=== PATIENT | female | born 1935 | race Caucasian/White ===

== ENCOUNTER 2017-07-28 16:05 | Inpatient (IN) | payer MEDICARE, BC ==
[~2017-07-28] VITALS: Ht 165.1 cm; Wt 51.9 kg
[~2017-07-28 16:05] MED LIST: BRIM5DRO EACHEYE; FURO40SO5 PO; LATA2.5D7 EACHEYE; LEVO125T PO; POTA8TAB8 PO; PROP20TA7 PO; SPIR100T3 PO
--- NOTE | 2017-07-28 16:25 | NUR ---
PT BIB [facility] S/P FALL DOWN STAIRS TODAY. NO KO BUT PT HIT BACK OF HER HEAD AND IS C/O POSTERIOR HEADACHE. ALSO C/O MID-BACK AND R CLAVICLE PAIN. NOTED WITH MULTIPLE ABRASIONS ALL OVER BODY, R HAND AVULSION, AND A HEMATOMA OVER THE R EYEBROW. A/OX4. ABLE TO FOLLOW COMMANDS. NO NEURO DEFICITS. NO N/V/D. RESP EVEN UNLABORED. IN ER BED 08.
--- NOTE | 2017-07-28 17:44 | NUR ---
MD AT BEDSIDE. REPORT MINIMAL PAIN RELIEF WITH MEDICATION ADMINISTERED.
[2017-07-28 18:03] LABS: BASOPHILS # (AUTO) 0.1 /CMM (0.0-0.2); BASOPHILS % (AUTO) 0.6 % (0.0-2.0); EOSINOPHILS % (AUTO) 0.1 % (0.0-6.0); HEMATOCRIT 35 % (33-45); LYMPHOCYTES # (AUTO) 0.7 /CMM (0.8-4.8); LYMPHOCYTES % (AUTO) 6.5 % (20.0-44.0); MEAN CORPUSCULAR HEMOGLOBIN 35 PG (26.0-33.0); MEAN CORPUSCULAR HGB CONC 34 g/dl (31.0-36.0); MEAN CORPUSCULAR VOLUME 103 fL (82-100); MONOCYTES # (AUTO) 0.6 /CMM (0.1-1.30); MONOCYTES % (AUTO) 5.7 % (2.0-12.0); NEUTROPHILS % (AUTO) 87.1 % (43.0-81.0); PLATELET COUNT (AUTO) 135 /CMM (150-450); RDW COEFFICIENT OF VARIATION 13.4 (11.5-15.0); RED BLOOD CELL COUNT(AUTO) 3.38 MIL/uL (4.0-5.2); WHITE BLOOD COUNT (AUTO) 10.4 K/uL (4.3-11.0)
--- NOTE | 2017-07-28 18:04 | NUR ---
CALLED [employer], WEB COMMUNICATIONS SPECIALIST WAS PAGED.
[2017-07-28 18:13] LABS: CALCIUM, SERUM 9.3 mg/dL (8.5-10.1); CARBON DIOXIDE 18 mmol/L (21-32); CHLORIDE 99 mmol/L (98-107); CREATININE 0.8 mg/dL (0.6-1.3); GLUCOSE 139 mg/dL (74-106); POTASSIUM 3.6 mmol/L (3.5-5.1); SODIUM SERUM 134 mmol/L (136-145); UREA NITROGEN, BLOOD 15 mg/dL (7-18)
[2017-07-28 18:16] LABS: INR 1.05 (0.87-1.13); PROTHROMBIN TIME 10.9 SECS (9.5-12.7)
[2017-07-28 18:26] LABS: ALANINE AMINOTRANSFERASE 29 U/L (12-78); ALBUMIN 3.2 g/dL (3.4-5.0); ALKALINE PHOSPHATASE 89 U/L (46-116); ASPARTATE AMINOTRANSFERASE 32 U/L (15-37); BILIRUBIN,DIRECT 0.2 mg/dL (0.0-0.2); BILIRUBIN,TOTAL 0.6 mg/dL (0.2-1.0); TOTAL PROTEIN, SERUM 7.3 g/dL (6.4-8.2)
--- NOTE | 2017-07-28 18:30 | NUR ---
RESTING WITH NO S/S OF DISRTRESS. RESP EVEN AND UNLABORED. EASILY AROUSABLE.
--- NOTE | 2017-07-28 19:01 | NUR ---
STILL AWAITING ROOM ASSIGNMENT. PT AWARE. DENIES ANY NEW OR WORSENING SX'S. NON DIAPHORETIC. RESP EVEN AND UNLABORED.
[2017-07-28] MEDS ORDERED: SPIR100T3 PO (19:07)
--- NOTE | 2017-07-28 19:38 | NUR ---
REPORT GIVEN TO TERESA FERRARO FOR FRANCOIS
--- NOTE | 2017-07-28 19:44 | NUR ---
PT TRANSPORTED TP MS BED BY EMT WITHOUT INCIDENT
[2017-07-28 20:00] VITALS: BP 153/67
--- NOTE | 2017-07-28 20:00 | NUR ---
RN NOTES RECEIVED PATIENT FROM ER VIA FELIPA, ALERT AND ORIENTED X3, ANXIOUS, NO SOB, NO RESPIRATORY DISTRESS, LUNG SOUNDS ARE CLEAR, ABDOMEN SOFT AND NONTENDER, ACTIVE BOWEL SOUNDS, DX OF RIGHT HUMERUS FX. S/P FALL AT HOME, COMPLAINING OF PAIN OF 8/10 TO RIGHT SHOULDER, AND RIGHT ARM. PAIN IS MORE EXCRUCIATING WHEN RIGHT ARM IS MOVED. RIGHT ARM IN SLING AND IMMOBILIZER. PER PATIENT, HAS ALCOHOL DRINKS AT 2PM, HAVING ALCOHOLIC DRINKS DAILY WITH MEALS, FOR LUNCH AND DINNER. SKIN ASSESSMENT PERFORMED AND PHOTOGRAPHED. RIGHT FOREHEAD HEMATOMA AND MULTIPLE BRUISING OF RIGHT AND LEFT ARMS. ORDERED WOUND CARE CONSULT FOR RIGHT HAND WITH DEEP TISSUE INJURY AND WITH SKIN PEELED OFF. GIVEN SPONGE BATH, MADE COMFORTABLE, WILL GIVE PAIN MEDICATION. NEEDS ATTENDED, ORIENTED TO USE OF CALL LIGHT. AT THE BEDSIDE.
--- NOTE | 2017-07-29 06:32 | NUR ---
RN NOTES PATIENT IS AWAKE AND ALERT, NO SOB, NO DISTRESS, GIVEN MORPHINE X2 FOR RIGHT ARM PAIN OF 8/10. SLEPT FOR 4 HOURS INTERMITTENTLY, NEEDS ATTENDED, CALL LIGHT WITHIN REACH.
[2017-07-29 06:59] LABS: BASOPHILS % (AUTO) 0.3 % (0.0-2.0); EOSINOPHILS # (AUTO) 0.1 /CMM (0.0-0.7); EOSINOPHILS % (AUTO) 1.1 % (0.0-6.0); HEMATOCRIT 28 % (33-45); HEMOGLOBIN 9.5 g/dL (11.5-14.8); LYMPHOCYTES # (AUTO) 1.5 /CMM (0.8-4.8); LYMPHOCYTES % (AUTO) 23.3 % (20.0-44.0); MEAN CORPUSCULAR HEMOGLOBIN 35 PG (26.0-33.0); MEAN CORPUSCULAR HGB CONC 34 g/dl (31.0-36.0); MEAN CORPUSCULAR VOLUME 103 fL (82-100); MONOCYTES # (AUTO) 0.7 /CMM (0.1-1.30); MONOCYTES % (AUTO) 11.1 % (2.0-12.0); NEUTROPHILS # (AUTO) 4.2 /CMM (1.8-8.9); NEUTROPHILS % (AUTO) 64.2 % (43.0-81.0); PLATELET COUNT (AUTO) 124 /CMM (150-450); RDW COEFFICIENT OF VARIATION 14.3 (11.5-15.0); RED BLOOD CELL COUNT(AUTO) 2.73 MIL/uL (4.0-5.2); WHITE BLOOD COUNT (AUTO) 6.6 K/uL (4.3-11.0)
[2017-07-29 07:16] LABS: CALCIUM, SERUM 8.3 mg/dL (8.5-10.1); CARBON DIOXIDE 21 mmol/L (21-32); CHLORIDE 105 mmol/L (98-107); CREATININE 0.7 mg/dL (0.6-1.3); GLUCOSE 101 mg/dL (74-106); MAGNESIUM 1.6 mg/dL (1.8-2.4); PHOSPHORUS 3.6 mg/dL (2.5-4.9); POTASSIUM 4.7 mmol/L (3.5-5.1); SODIUM SERUM 135 mmol/L (136-145); UREA NITROGEN, BLOOD 13 mg/dL (7-18)
[2017-07-29 07:29] LABS: CHOLESTEROL 156 mg/dL (<200); HDL CHOLESTEROL 84 mg/dL (40-60); LDL 72 mg/dL (0-99); TRIGLYCERIDES 36 mg/dL (30-150)
--- NOTE | 2017-07-29 07:40 | NUR ---
RN Initial Notes: Patient alert oriented x3. Nonlabored breathing on room air noted. Patient denies pain at the moment. IV site on left forearm patent and intact. Bed in lowest locked position. Call light within reach. Will continue to monitor.
[2017-07-29 08:59] VITALS: BP 116/54
[2017-07-29 16:00] VITALS: BP 133/80
--- NOTE | 2017-07-29 18:48 | NUR ---
RN Closing Notes: Patient alert oriented x3. Nonlabored breathing on room air noted. Patient denies pain at the moment. Patient offered Ice packs IV site on left forearm patent and intact. Bed in lowest locked position. Call light within reach. During shift, patient turned and repositioned every 2 hours. Patient kept clean and dry. Will endorse to next shift.
[2017-07-29 20:00] VITALS: BP 93/52
--- NOTE | 2017-07-29 20:11 | NUR ---
RN NOTES ENDORSED PATIENT TO RENNY PRITCHETT FOR FRANCOIS. PATIENT IN STABLE CONDITION. NO SIGNS OF SYMPTOMS OF DISTRESS OR DISCOMFORT.
--- NOTE | 2017-07-29 20:15 | NUR ---
PESTICIDE USE MEDICAL COORDINATOR INITIAL NOTES CHECKED PT AFTER GOT REPORT FROM ANOTHER NURSE FOR CONTINUITY OF CARE. SHE'S RESTING RIGHT NOW BUT WATCHING TV . DENIES ANY PAIN OR ANY DISCOMFORT. STILL WITH IVF OF NS AT 75ML/HR ON HER LEFT FOREARM . STILL BRUISE PRESENT AND HEMATOMA RIGHT FOREHEAD. RIGHT SHOULDER WITH IMMOBILIZER /SLING FOR COMFORT. KEPT HER WARM AND COMFORTABLE AT ALL TIMES. WILL CONTINUE TO MONITOR. PLACE CALL LIGHT AT REACH.
[2017-07-29 20:33] VITALS: BP 93/50
--- NOTE | 2017-07-30 | NUR ---
CLINICAL EDITOR/NOTES PT SLEEPING COMFORTABLY IN BED WITHOUT ANY ACUTE DISTRESS NOTED. IVF STILL INFUSING. KEPT HER WARM AND COMFORTABLE AT ALL TIMES. ICE PACK REPLACED ON HER RIGHT FOR COMFORT. WILL CONTINUE TO MONITOR.
--- NOTE | 2017-07-30 07:16 | NUR ---
MS REFRIGERATOR CAR ICER CLOSING NOTES PT AWAKE AND ALERT AT THIS TIME, MORNING CARE DONE WITH THE HELPED OF HAILEY KITCHEN, REPOSITION HER FOR COMFORT. STABLE DARYL THE NIGHT AND SLEPT WELL, RIGHT ARM STILL ON IMMOBILIZER AND ICE PACK APPLIED FOR COMFORT AND HELPED TO RELIEVED THE PAIN. PT JUST REFUSED TO CHANGED HER GOWN, ENDORSE TO AM NURSE.
--- NOTE | 2017-07-30 07:26 | NUR ---
RN Initial Notes: Patient resting in bed. Patient alert oriented x3. Non-labored breathing on room air. Patient denies pain at the moment. IV site patent and intact. Immobilizer and sling on. Patient not putting weight on arm. Bed in lowest locked position. Call light within reach. Will continue to monitor.
[2017-07-30 08:00] VITALS: BP 129/62
[2017-07-30 16:30] VITALS: BP 166/55
--- NOTE | 2017-07-30 19:14 | NUR ---
RN Closing Notes: Patient resting in bed. Patient alert oriented x3. Non-labored breathing on room air. Patient denies pain at the moment. IV site patent and intact. Immobilizer and sling on. Patient not putting weight on arm. Bed in lowest locked position. Call light within reach. Will endorse to next shift
--- NOTE | 2017-07-30 19:30 | NUR ---
RN NOTES RECEIVED PATIENT IN BED AWAKE, AO X 1, ABLE TO MAKE NEEDS KNOWN. NO ACUTE DISTRESS NOTED. NO SIGNS OF PAIN NOTED. IV SITES PATENT, INTACT; FLUSHED. LEFT UPPER ARM AV SHUNT INTACT. GT PATENT, INTACT; IN PLACE VIA AUSCULTATION. GTF ONGOING ORDERED; 10 ML RESIDUAL NOTED. HOB RAISED 35 DEGREES ORDERED. ASPIRATION PRECAUTION MAINTAINED. ON LOW BED WITH BILATERAL UPPER SIDE RAILS UP. CALL LIGHT WITHIN EASY REACH. WILL CONTINUE TO MONITOR.
[2017-07-30 20:00] VITALS: BP 105/54
--- NOTE | 2017-07-31 06:22 | NUR ---
RN NOTES PATIENT ASLEEP, EASILY AROUSABLE. RESPIRATIONS EVEN. NO SIGNS OF PAIN NOTED. NEEDS ATTENDED. SAFETY PRECAUTIONS AND COMFORT MEASURES IN PLACE. WILL GIVE REPORT TO DAY SHIFT FOR CONTINUITY OF CARE.
[2017-07-31 07:19] LABS: BASOPHILS % (AUTO) 0.4 % (0.0-2.0); EOSINOPHILS # (AUTO) 0.1 /CMM (0.0-0.7); EOSINOPHILS % (AUTO) 2.2 % (0.0-6.0); HEMATOCRIT 28 % (33-45); HEMOGLOBIN 9.4 g/dL (11.5-14.8); LYMPHOCYTES % (AUTO) 26.5 % (20.0-44.0); MEAN CORPUSCULAR HEMOGLOBIN 36 PG (26.0-33.0); MEAN CORPUSCULAR HGB CONC 34 g/dl (31.0-36.0); MEAN CORPUSCULAR VOLUME 105 fL (82-100); MONOCYTES # (AUTO) 0.4 /CMM (0.1-1.30); MONOCYTES % (AUTO) 11.1 % (2.0-12.0); NEUTROPHILS # (AUTO) 2.2 /CMM (1.8-8.9); NEUTROPHILS % (AUTO) 59.8 % (43.0-81.0); PLATELET COUNT (AUTO) 80 /CMM (150-450); RDW COEFFICIENT OF VARIATION 14.2 (11.5-15.0); RED BLOOD CELL COUNT(AUTO) 2.64 MIL/uL (4.0-5.2); WHITE BLOOD COUNT (AUTO) 3.7 K/uL (4.3-11.0)
[2017-07-31 07:35] LABS: CALCIUM, SERUM 8.4 mg/dL (8.5-10.1); CARBON DIOXIDE 22 mmol/L (21-32); CHLORIDE 105 mmol/L (98-107); CREATININE 0.7 mg/dL (0.6-1.3); GLUCOSE 91 mg/dL (74-106); POTASSIUM 3.9 mmol/L (3.5-5.1); SODIUM SERUM 139 mmol/L (136-145); UREA NITROGEN, BLOOD 10 mg/dL (7-18)
[2017-07-31 08:00] VITALS: BP 146/70
--- NOTE | 2017-07-31 08:00 | NUR ---
MS RN AM Notes: Patient resting in bed. Patient alert oriented x3. Non-labored breathing on room air. Patient denies pain at the moment. IV site to LFA patent and intact. Immobilizer and sling on. Patient not putting weight on arm. Bed in lowest locked position. Encouraged pt to ambulate along the hallway or atleast get OOB with assist.Pt scared to get OOB.Pain mgt done PRN.NOC RN just administered Weatherly 5/325 mg 1 tab earlier.Will monitor. Call light within reach.
[2017-07-31 09:08] LABS: BAND % (MANUAL) 1 % (0.0-5.0); EOSINOPHILS % (MANUAL) 2 % (0-4); LYMPHOCYTES % (MANUAL) 36 % (16-48); MONOCYTES % (MANUAL) 8 % (0-11.0); NEUTROPHILS % (MANUAL) 53 (42-76)
[2017-07-31 16:00] VITALS: BP 155/73
--- NOTE | 2017-07-31 17:40 | NUR ---
DISCHARGED PT TO [facility] VIA AMBULANCE WITH STABLE V/S ACCOMPANIED BY HER DENYING PAIN OR DISTRESS.REPORT CALLED IN TO RONAN JORDAN OF [facility].REMOVED IV H/L TO LFA WITHOUT BLEEDING NOTED.INSTRUCTED TO F/U WITH DR BLAS IN 1-2 WKS.
== END 2017-07-31 19:15 | DRG 543 ==
LOC: ER 16:06 → MED 19:38
PROVIDERS: ADMIT Internal Medicine; ATTEND Internal Medicine
DX: M80.021A Age-related osteoporosis with current pathological fracture, right humerus, initial encounter for fracture (principal); N17.9 Acute kidney failure, unspecified; E44.0 Moderate protein-calorie malnutrition; D69.6 Thrombocytopenia, unspecified; E87.1 Hypo-osmolality and hyponatremia; E83.42 Hypomagnesemia; Z68.1 Body mass index [BMI] 19.9 or less, adult; M80.041 Age-related osteoporosis with current pathological fracture, right hand; D53.9 Nutritional anemia, unspecified; E03.9 Hypothyroidism, unspecified; E78.5 Hyperlipidemia, unspecified; W10.9XXA Fall (on) (from) unspecified stairs and steps, initial encounter; Y92.009 Unspecified place in unspecified non-institutional (private) residence as the place of occurrence of the external cause; I10 Essential (primary) hypertension; F10.20 Alcohol dependence, uncomplicated; M50.323 Other cervical disc degeneration at C6-C7 level; K74.60 Unspecified cirrhosis of liver; I35.0 Nonrheumatic aortic (valve) stenosis; I34.0 Nonrheumatic mitral (valve) insufficiency; Y93.9 Activity, unspecified; S62.346A Nondisplaced fracture of base of fifth metacarpal bone, right hand, initial encounter for closed fracture
CPT/HCPCS: 36415; 70450-TC; 71010-TC; 72125-TC; 73030-TC; 73110; 73130-TC; 80048-TC; 80061-TC; 80076-TC; 83735-TC; 84100-TC; 85025-TC; 85730-TC; 87081-TC; 90715; 93307-TC; 97116-TC; 97530-TC; 97535-TC; A4606; A6402; J2270; J3475; J7030; Q0162; Z7610

== ENCOUNTER 2018-02-03 13:46 | Inpatient (IN) | payer MEDICARE, BC ==
[~2018-02-03] VITALS: Ht 162.6 cm; Wt 51.7 kg
[~2018-02-03 13:46] MED LIST changes: -BRIM5DRO EACHEYE; -FURO40SO5 PO; -LATA2.5D7 EACHEYE; -POTA8TAB8 PO; -PROP20TA7 PO; -SPIR100T3 PO; +SPIR100T5 PO
--- NOTE | 2018-02-03 13:46 | NUR ---
[id number] FROM HOME FOR GENEREALIZED WEAKNESS X 0930AM. NAD NOTED. HX LIVER CIRRHOSIS. PT AAO X4, VSS. PENDING MD JARRELL.
--- NOTE | 2018-02-03 15:00 | NUR ---
AT 1450 NOTIFIED ER DOCTOR SAL, NO RADIOLOGIST ON SITE. RADIOLOGIST HAS LEFT TO [facility] TO PERFORM OTHER PROCEDURES
[2018-02-03 15:21] LABS: ALANINE AMINOTRANSFERASE 22 U/L (12-78); ALBUMIN 2.5 g/dL (3.4-5.0); ALKALINE PHOSPHATASE 99 U/L (46-116); ASPARTATE AMINOTRANSFERASE 48 U/L (15-37); BILIRUBIN,DIRECT 0.5 mg/dL (0.0-0.2); BILIRUBIN,TOTAL 1.1 mg/dL (0.2-1.0); CALCIUM, SERUM 8.8 mg/dL (8.5-10.1); CARBON DIOXIDE 21 mmol/L (21-32); CHLORIDE 96 mmol/L (98-107); CREATININE 0.7 mg/dL (0.6-1.3); GLUCOSE 109 mg/dL (74-106); LIPASE 82 U/L (73-393); POTASSIUM 4.1 mmol/L (3.5-5.1); SODIUM SERUM 129 mmol/L (136-145); TOTAL PROTEIN, SERUM 7.3 g/dL (6.4-8.2); UREA NITROGEN, BLOOD 20 mg/dL (7-18)
[2018-02-03 15:39] LABS: BASOPHILS % (AUTO) 0.7 % (0.0-2.0); EOSINOPHILS % (AUTO) 0.7 % (0.0-6.0); HEMATOCRIT 31 % (33-45); HEMOGLOBIN 10.6 g/dL (11.5-14.8); LYMPHOCYTES % (AUTO) 16.4 % (20.0-44.0); MEAN CORPUSCULAR HGB CONC 34 g/dl (31.0-36.0); MEAN CORPUSCULAR VOLUME 106 fL (82-100); MONOCYTES # (AUTO) 0.4 /CMM (0.1-1.30); MONOCYTES % (AUTO) 7.4 % (2.0-12.0); NEUTROPHILS # (AUTO) 4.5 /CMM (1.8-8.9); NEUTROPHILS % (AUTO) 74.8 % (43.0-81.0); PLATELET COUNT (AUTO) 194 /CMM (150-450); RDW COEFFICIENT OF VARIATION 18.8 (11.5-15.0); RED BLOOD CELL COUNT(AUTO) 2.93 MIL/uL (4.0-5.2); WHITE BLOOD COUNT (AUTO) 5.9 K/uL (4.3-11.0)
--- NOTE | 2018-02-03 17:10 | NUR ---
DR BROOKS- [phone] FOR HER PRIMARY MD
--- NOTE | 2018-02-03 17:21 | NUR ---
CALLED NURSING SUPP FOR BED
[2018-02-03 17:38] LABS: LYMPHOCYTES % (MANUAL) 10 % (16-48); MONOCYTES % (MANUAL) 1 % (0-11.0); NEUTROPHILS % (MANUAL) 89 (42-76)
--- NOTE | 2018-02-03 17:38 | NUR ---
ADMIT TO BED 321-1
--- NOTE | 2018-02-03 17:47 | NUR ---
REPORT GIVEN TO MAYA FERRARO FOR FRANCOIS
[2018-02-03] MEDS ORDERED: FURO40TA5 PO (17:52)
[2018-02-03] MEDS ORDERED: PROP20TA7 PO (17:52)
--- NOTE | 2018-02-03 18:20 | NUR ---
PT TRANSFERRED TO [facility] IN STABLE CONDITION.
[2018-02-03 18:30] VITALS: BP 135/65
--- NOTE | 2018-02-03 18:44 | NUR ---
ms aerospace control and warning systems notes Admitted a 82 years old female who came in due to weakness and for DYANA guided paracentesis. Patient is alert and oriented x 4, verbally responsive and able to make needs known. at bedside. IV intact and patent HL only. Skin assessment will endorse to night clerk auditor. Antonieta ACADEMIC AFFAIRS MANAGER made aware about the admission and ordered diet 2gNa. Vital signs checked and recorded. Call light with in patient reach, will continue to monitor.
--- NOTE | 2018-02-03 19:17 | NUR ---
ms rn closing notes All needs provided, attended, and anticipated. Patient in stable condition. Call light with in patient reach, endorsed to next shift RN to continue care.
[2018-02-03 20:00] VITALS: BP 129/63
[2018-02-03] MEDS ORDERED: ZOLPIDEM TARTRATE 5 MG TABLET PO PRN (20:00)
[2018-02-03] MEDS ORDERED: MAGNESIUM HYDROXIDE 30 ML UDC PO PRN (20:00)
[2018-02-03] MEDS ORDERED: HYDROCODONE/APAP 5/325MG 1 EACH TABLET PO PRN (20:00)
[2018-02-03] MEDS ORDERED: INSULIN REGULAR, HUMAN 100 UNIT/ML 3 ML VIAL SQ PRN (20:00)
[2018-02-03] MEDS ORDERED: Z GUARD REMEDY 2 OZ OINT TP PRN (20:00)
[2018-02-03] MEDS ORDERED: ACETAMINOPHEN 325 MG TABLET PO PRN (20:00)
[2018-02-03] MEDS ORDERED: *INSULIN REGULAR(HUMULIN R)HUM 100 UNIT/ML VIAL SQ PRN (20:00)
[2018-02-03] MEDS ORDERED: DEXTROSE 50%-WATER 50 ML DISP.SYRIN IV PRN (20:00)
[2018-02-03] MEDS ORDERED: ONDANSETRON HCL/PF 4 MG/2 ML VIAL IVP PRN (20:00)
--- NOTE | 2018-02-03 20:05 | NUR ---
MS/RN PATIENT AWAKE, ALERT, ORIENTED, COMFORTABLE, NO C/O PAIN, NO DISTRESS NOTED. PLAN OF CARE DISCUSSED, PATIENT NOT AGREEABLE FOR THE PARACENTESIS ORDERED FOR TOMORROW AND REFUSES TO SIGN THE CONSENT. PER PATIENT SHE WILL NEED TO TALK TO THE DOCTOR FIRST IN THE MORNING.
[2018-02-03] MEDS: PROPRANOLOL HCL 10 MG TABLET PO SCH (21:00)
[2018-02-04 00:25] LABS: APPEARANCE,URINE CLEAR (CLEAR); BILIRUBIN,URINE NEGATIVE (NEGATIVE); BLOOD, URINE NEGATIVE Ery/uL (NEGATIVE); KETONES,URINE 1+ (NEGATIVE); LEUKOCYTE ESTERASE ,URINE NEGATIVE (NEGATIVE); NITRITE, URINE NEGATIVE (NEGATIVE); PH,URINE 5.5 (5.0-8.0); PROTEIN,URINE NEGATIVE (NEGATIVE); UGLUCOSE NEGATIVE (NEGATIVE); UROBILINOGEN,URINE 0.2 EU/dL (0.2)
[2018-02-04 00:26] LABS: COLOR,URINE DARK YELLOW (YELLOW)
[2018-02-04 00:28] LABS: BACTERIA,URINE Few /HPF (None Seen); RBC,URINE 0-2 /HPF (0-2); SQUAMOUS EPITHELIAL CELL,UR Many /HPF (None Seen); WBC,URINE 0-2 /HPF (0-3)
--- NOTE | 2018-02-04 01:01 | NUR ---
MS/RN PATIENT IS SLEEPING AT THIS TIME, AROUSABLE, APPEAR COMFORTABLE, NO SIGNS OF DISTRESS NOTED, CALL LIGHT IN REACH. WILL CONTINUE TO MONITOR.
[2018-02-04] MEDS: BLOOD SUGAR DIAGNOSTIC 1 EACH STRIP IN SCH ×4 (01:04→18:20)
[2018-02-04 05:21] LABS: OCCULT BLOOD STOOL POSITIVE (NEGATIVE)
--- NOTE | 2018-02-04 07:01 | NUR ---
MS/RN PATIENT IS AWAKE, ALERT, ORIENTED, COMFORTABLE, NO CHANGE IN CONDITION, NPO POST MIDNIGHT FOR POSSIBLE PARACENTESIS TODAY IF THE PATIENT WILL CONSENT. ALL NEEDS ATTENDED AT THIS TIME. WILL CONTINUE TO MONITOR.
[2018-02-04 07:18] LABS: BASOPHILS % (AUTO) 0.5 % (0.0-2.0); EOSINOPHILS % (AUTO) 0.5 % (0.0-6.0); HEMATOCRIT 27 % (33-45); HEMOGLOBIN 9.6 g/dL (11.5-14.8); LYMPHOCYTES # (AUTO) 0.8 /CMM (0.8-4.8); LYMPHOCYTES % (AUTO) 17.2 % (20.0-44.0); MEAN CORPUSCULAR HGB CONC 35 g/dl (31.0-36.0); MEAN CORPUSCULAR VOLUME 106 fL (82-100); MONOCYTES # (AUTO) 0.5 /CMM (0.1-1.30); MONOCYTES % (AUTO) 10.8 % (2.0-12.0); NEUTROPHILS # (AUTO) 3.3 /CMM (1.8-8.9); PLATELET COUNT (AUTO) 145 /CMM (150-450); RDW COEFFICIENT OF VARIATION 20.3 (11.5-15.0); RED BLOOD CELL COUNT(AUTO) 2.57 MIL/uL (4.0-5.2); WHITE BLOOD COUNT (AUTO) 4.6 K/uL (4.3-11.0)
[2018-02-04 07:35] LABS: CHOLESTEROL 162 mg/dL (<200); HDL CHOLESTEROL 94 mg/dL (40-60); LDL 69 mg/dL (0-99); TRIGLYCERIDES 46 mg/dL (30-150)
[2018-02-04 07:40] LABS: CALCIUM, SERUM 8.1 mg/dL (8.5-10.1); CARBON DIOXIDE 23 mmol/L (21-32); CHLORIDE 95 mmol/L (98-107); CREATININE 0.7 mg/dL (0.6-1.3); GLUCOSE 101 mg/dL (74-106); MAGNESIUM 1.6 mg/dL (1.8-2.4); PHOSPHORUS 2.8 mg/dL (2.5-4.9); POTASSIUM 4.5 mmol/L (3.5-5.1); SODIUM SERUM 130 mmol/L (136-145); UREA NITROGEN, BLOOD 19 mg/dL (7-18)
[2018-02-04 08:00] VITALS: BP_SYST 122; BP_SYST 143; BP_DIAS 63; BP_DIAS 71
--- NOTE | 2018-02-04 08:00 | NUR ---
ms rn received on bed awake,alert,oriented x4,not in any form of distress, respirations even and unlabored,no sob noted, lungs are diminish,abdomen is distended, for paracenthesis today if agreed, no distress noted, denies pain at this time, at bedside.will monitor patient.
[2018-02-04] MEDS: PROPRANOLOL HCL 10 MG TABLET PO SCH ×2 (09:00→17:00)
[2018-02-04 10:07] LABS: BAND % (MANUAL) 2 % (0.0-5.0); LYMPHOCYTES % (MANUAL) 17 % (16-48); MONOCYTES % (MANUAL) 6 % (0-11.0); NEUTROPHILS % (MANUAL) 75 (42-76)
[2018-02-04] MEDS ORDERED: LIDOCAINE HCL/PF 1% 30 ML SDV ONE (10:10)
[2018-02-04] MEDS ORDERED: LEVOFLOXACIN 500 MG /D5W 100ML 500 MG in PREMIX 1 EA IV SCH (11:00)
[2018-02-04] MEDS ORDERED: LEVOFLOXACIN 500 MG /D5W 100ML 500 MG in PREMIX 1 EA IV ONE (12:00)
--- NOTE | 2018-02-04 12:00 | NUR ---
MS RN PARACENTHESIS DONE W/ 1000ML OUT,TOLERATED WELL.
[2018-02-04] MEDS: Magnesium 1GM/D5W 100ML PREMIX 100 ML IV SCH ×2 (14:10→18:21)
[2018-02-04] MEDS: SPIRONOLACTONE 25 MG TABLET PO SCH (14:17)
[2018-02-04] MEDS: FUROSEMIDE 40 MG TABLET PO SCH (14:17)
[2018-02-04] MEDS: LEVOTHYROXINE SODIUM 125 MCG TABLET PO SCH (14:18)
[2018-02-04] MEDS: THIAMINE HCL 100 MG TABLET PO SCH (14:22)
[2018-02-04 16:00] VITALS: BP 134/60
--- NOTE | 2018-02-04 18:00 | NUR ---
ms chowdhury bs - 159 - refused coverage, has a tendency to go low.
[2018-02-04] MEDS: PANTOPRAZOLE 40 MG VIAL IV SCH (18:20)
--- NOTE | 2018-02-04 19:30 | NUR ---
MS/RN RECEIVE PATIENT AWAKE, ALERT, ORIENTED, COMFORTABLE, NO C/O PAIN, NO DISTRESS NOTED, PLAN OF CARE RE: EGD IN THE MORNING, NPO POST MIDNIGHT, DISCUSSED VERBALIZED UNDERSTANDING AND IS IN AGREEMENT TO THE PLAN. WILL MONITOR.
[2018-02-04 20:00] VITALS: BP 126/59
[2018-02-05] MEDS: BLOOD SUGAR DIAGNOSTIC 1 EACH STRIP IN SCH ×5 (00:09→23:38)
--- NOTE | 2018-02-05 00:10 | NUR ---
MS/RN PATIENT STILL AWAKE, NPO STATUS STARTED, PATIENT MADE AWARE AND IS IN AGREEMENT OF THE PLAN OF CARE.
--- NOTE | 2018-02-05 04:11 | NUR ---
MS/RN PATIENT IS SLEEPING AT THIS TIME, EASILY AROUSABLE, APPEAR COMFORTABLE, NO DISTRESS NOTED, CALL LIGHT IN REACH. WILL CONTINUE TO MONITOR.
--- NOTE | 2018-02-05 06:44 | NUR ---
MS/RN PATIENT IS AWAKE, ALERT ORIENTED, COMFORTABLE, ALL NEEDS ATTENDED AT THIS TIME, FERN PICKER TIME FOR EGD IS 8:00 A.M. PER INSPECTION CLERK, PATIENT INFORMED.
--- NOTE | 2018-02-05 08:00 | NUR ---
ms rn received on bed, awake,alert,oriented x4,not in any form of distress,respirations even and unlabored,no sob noted, lungs are diminished, abdomen distended, npo at this time, for egd today.
--- NOTE | 2018-02-05 08:20 | NUR ---
ms rn patient went down for egd.
[2018-02-05 08:27] LABS: BASOPHILS % (AUTO) 0.6 % (0.0-2.0); EOSINOPHILS % (AUTO) 0.7 % (0.0-6.0); HEMATOCRIT 27 % (33-45); HEMOGLOBIN 9.3 g/dL (11.5-14.8); LYMPHOCYTES # (AUTO) 0.6 /CMM (0.8-4.8); LYMPHOCYTES % (AUTO) 17.4 % (20.0-44.0); MEAN CORPUSCULAR HGB CONC 35 g/dl (31.0-36.0); MEAN CORPUSCULAR VOLUME 107 fL (82-100); MONOCYTES # (AUTO) 0.4 /CMM (0.1-1.30); MONOCYTES % (AUTO) 11.7 % (2.0-12.0); NEUTROPHILS # (AUTO) 2.2 /CMM (1.8-8.9); NEUTROPHILS % (AUTO) 69.6 % (43.0-81.0); PLATELET COUNT (AUTO) 126 /CMM (150-450); RDW COEFFICIENT OF VARIATION 19.7 (11.5-15.0); RED BLOOD CELL COUNT(AUTO) 2.51 MIL/uL (4.0-5.2); WHITE BLOOD COUNT (AUTO) 3.2 K/uL (4.3-11.0)
[2018-02-05 08:55] VITALS: BP 134/65
[2018-02-05 08:55] LABS: CALCIUM, SERUM 8.2 mg/dL (8.5-10.1); CARBON DIOXIDE 25 mmol/L (21-32); CHLORIDE 94 mmol/L (98-107); CREATININE 0.9 mg/dL (0.6-1.3); GLUCOSE 104 mg/dL (74-106); MAGNESIUM 1.9 mg/dL (1.8-2.4); PHOSPHORUS 2.5 mg/dL (2.5-4.9); POTASSIUM 3.8 mmol/L (3.5-5.1); SODIUM SERUM 129 mmol/L (136-145); UREA NITROGEN, BLOOD 18 mg/dL (7-18)
--- NOTE | 2018-02-05 09:51 | NUR ---
ms rn came back from the procedure, awake,alert,oriented x4,not in any form of distress, will monitor patient.
[2018-02-05 10:27] LABS: LYMPHOCYTES % (MANUAL) 26 % (16-48); MONOCYTES % (MANUAL) 7 % (0-11.0); NEUTROPHILS % (MANUAL) 67 (42-76)
--- NOTE | 2018-02-05 13:00 | NUR ---
MS RN BS - 149 -REFUSED COVERAGE, PATIENT DID NOT EAT MUCH.
[2018-02-05] MEDS: LEVOTHYROXINE SODIUM 125 MCG TABLET PO SCH (13:18)
[2018-02-05] MEDS: SPIRONOLACTONE 25 MG TABLET PO SCH (13:19)
[2018-02-05] MEDS: THIAMINE HCL 100 MG TABLET PO SCH (13:19)
[2018-02-05] MEDS: FUROSEMIDE 40 MG TABLET PO SCH (13:19)
[2018-02-05] MEDS: FOLIC ACID 1 MG TABLET PO SCH (13:19)
[2018-02-05] MEDS: PROPRANOLOL HCL 10 MG TABLET PO SCH ×2 (13:20→17:00)
[2018-02-05] MEDS: LEVOFLOXACIN 250 MG /D5W 50 ML 250 MG in PREMIX 1 EA IV SCH (13:23)
[2018-02-05 16:03] VITALS: BP 118/55
[2018-02-05] MEDS: PANTOPRAZOLE 40 MG VIAL IV SCH (17:26)
--- NOTE | 2018-02-05 18:00 | NUR ---
MS FERRARO BS -114 - NO COVERAGE GIVEN.
--- NOTE | 2018-02-05 18:06 | NUR ---
MS RN ON BED, NO DISTRESS NOTED,ALL NEEDS ATTENDED.
--- NOTE | 2018-02-05 19:30 | NUR ---
MS/RN NOTES RECEIVED PT. SITTING UP IN BED. PT. IS AWAKE, ALERT AND ORIENTED X4. BREATHING EVEN AND UNLABORED ON ROOM AIR. NO SOB, RESPIRATORY DISTRESS OR COMPLAINTS OF PAIN NOTED AT THIS TIME. PT. WITH RIGHT FOREARM 20 GAUGE IV SALINE LOCK PRESENT, PATENT AND INTACT. PT. WITH FAMILY MEMBER PRESENT AT BEDSIDE. BED LOCKED AND IN LOWEST POSITION, SIDE RAILS UP X3, BED ALARM ON, CALL LIGHT WITHIN REACH, WILL CONTINUE TO MONITOR.
[2018-02-05 20:00] VITALS: BP 115/66
[2018-02-05] MEDS ORDERED: MAGNESIUM OXIDE 400 MG TABLET PO SCH (22:00)
[2018-02-06] MEDS: BLOOD SUGAR DIAGNOSTIC 1 EACH STRIP IN SCH ×2 (06:03→13:01)
--- NOTE | 2018-02-06 06:33 | NUR ---
MS/RN NOTES PT. IS LYING IN BED RESTING. BREATHING EVEN AND UNLABORED ON ROOM AIR. NO SOB, RESPIRATORY DISTRESS OR COMPLAINTS OF PAIN NOTED AT THIS TIME AND THROUGHOUT SHIFT. PT. WITH RIGHT FOREARM 20 GAUGE IV SALINE LOCK PRESENT, PATENT AND INTACT. ALL PT. NEEDS MET. PT. ASSISTED AND ENCOURAGED TO TURN AND REPOSITION Q2H AND NEEDED. BED LOCKED AND IN LOWEST POSITION, SIDE RAILS UP X3, BED ALARM ON, CALL LIGHT WITHIN REACH, WILL ENDORSE TO DAYSHIFT NURSE FOR CONTINUITY OF CARE.
[2018-02-06 07:22] LABS: BASOPHILS % (AUTO) 0.3 % (0.0-2.0); EOSINOPHILS % (AUTO) 1.1 % (0.0-6.0); HEMATOCRIT 25 % (33-45); HEMOGLOBIN 8.8 g/dL (11.5-14.8); LYMPHOCYTES % (AUTO) 27.3 % (20.0-44.0); MEAN CORPUSCULAR HGB CONC 35 g/dl (31.0-36.0); MEAN CORPUSCULAR VOLUME 108 fL (82-100); MONOCYTES # (AUTO) 0.3 /CMM (0.1-1.30); MONOCYTES % (AUTO) 9.8 % (2.0-12.0); NEUTROPHILS # (AUTO) 2.1 /CMM (1.8-8.9); NEUTROPHILS % (AUTO) 61.5 % (43.0-81.0); PLATELET COUNT (AUTO) 127 /CMM (150-450); RDW COEFFICIENT OF VARIATION 19.6 (11.5-15.0); RED BLOOD CELL COUNT(AUTO) 2.34 MIL/uL (4.0-5.2); WHITE BLOOD COUNT (AUTO) 3.5 K/uL (4.3-11.0)
--- NOTE | 2018-02-06 07:33 | NUR ---
MS RN NOTES PATIENT RECEIVED RESTING INSIDE ROOM, AWAKE, ALERT AND ORIENTED X 4, ABLE TO MAKE NEEDS KNOWN AND FOLLOW SIMPLE INSTRUCTIONS. BREATHING EVEN AND UNLABORED. NO SOB OR ACUTE DISTRESS NOTED. DENIES ANY PAIN OR DISCOMFORT. PATIENT CALM AND RELAXED. NO CHANGES IN LOC NOTED AT THIS TIME. IV SITE ON RIGHT FOREARM INTACT AND PATENT. NO BLEEDING OR SWELLING NOTED AT THIS TIME. WILL CONTINUE TO MONITOR. BILATERAL UPPER SIDE RAILS UP AND LOCKED. BED LOCKED AND IN LOW POSITION. WILL CONTINUE TO MONITOR
[2018-02-06 07:47] LABS: ALANINE AMINOTRANSFERASE 18 U/L (12-78); ALBUMIN 2.2 g/dL (3.4-5.0); ALKALINE PHOSPHATASE 70 U/L (46-116); ASPARTATE AMINOTRANSFERASE 25 U/L (15-37); BILIRUBIN,TOTAL 1.3 mg/dL (0.2-1.0); CALCIUM, SERUM 8.6 mg/dL (8.5-10.1); CARBON DIOXIDE 27 mmol/L (21-32); CHLORIDE 94 mmol/L (98-107); GLUCOSE 109 mg/dL (74-106); MAGNESIUM 2.8 mg/dL (1.8-2.4); PHOSPHORUS 2.9 mg/dL (2.5-4.9); POTASSIUM 3.7 mmol/L (3.5-5.1); SODIUM SERUM 128 mmol/L (136-145); UREA NITROGEN, BLOOD 18 mg/dL (7-18)
[2018-02-06 08:00] VITALS: BP 112/60
[2018-02-06 08:07] LABS: EOSINOPHILS % (MANUAL) 1 % (0-4); LYMPHOCYTES % (MANUAL) 23 % (16-48); MONOCYTES % (MANUAL) 5 % (0-11.0); NEUTROPHILS % (MANUAL) 71 (42-76)
[2018-02-06 09:02] VITALS: BP 112/60
[2018-02-06] MEDS: PROPRANOLOL HCL 10 MG TABLET PO SCH (09:02)
[2018-02-06] MEDS: LEVOTHYROXINE SODIUM 125 MCG TABLET PO SCH (09:02)
[2018-02-06] MEDS: THIAMINE HCL 100 MG TABLET PO SCH (09:02)
[2018-02-06] MEDS: FUROSEMIDE 40 MG TABLET PO SCH (09:02)
[2018-02-06] MEDS: FOLIC ACID 1 MG TABLET PO SCH (09:02)
[2018-02-06] MEDS: SPIRONOLACTONE 25 MG TABLET PO SCH (09:02)
[2018-02-06] MEDS ORDERED: FOLI1TAB16 PO (10:32)
[2018-02-06] MEDS ORDERED: THIA100T13 PO (10:32)
--- NOTE | 2018-02-06 11:00 | NUR ---
MS RN NOTES PATIENT SEEN AND EXAMINED BY TANGELA LIPSCOMB NP. ORDERS NOTED AND CARRIED OUT
--- NOTE | 2018-02-06 13:00 | NUR ---
MS RN NOTES RECEIVED CALL FROM ELECTRONIC COMPONENTS ASSEMBLER REGARDING PATIENT DISCHARGE TO [facility], WITH AMBULANCE METAL CEILING BUILDER AT 1400. PATIENT AND YINA, SPOUSE MADE AWARE
[2018-02-06] MEDS: LEVOFLOXACIN 250 MG /D5W 50 ML 250 MG in PREMIX 1 EA IV SCH (13:01)
--- NOTE | 2018-02-06 14:00 | NUR ---
MS RN NOTES PLACED CALL TO [facility] AND SPOKE WITH RONAN OLSON AND GAVE REPORT
--- NOTE | 2018-02-06 14:45 | NUR ---
MS RN NOTES PATIENT DISCHARGE TODAY, DISCHARGE INSTRUCTIONS GIVEN TO PATIENT AND YINA () AND VERBALIZED UNDERSTANDING. PATIENT LEFT UNIT IN STABLE CONDITION. BREATHING EVEN AND UNLABORED. NO SOB OR ACUTE DISTRESS NOTED. PATIENT AFEBRILE, SKIN DRY AND WARM TO TOUCH. NO NEW SKIN BREAKDOWN NOTED. IV REMOVED WITH MINIMAL BLEEDING NOTED. ALL BELONGINGS COMPLETE UPON DISCHARGE, NO REPORT OF MISSING BELONGINGS. PATIENT SEEN BY ELLIE ONEILL WITH NEW ORDER FOR FOLLOW-UP APPOINTMENT WITH DR. HERNANDEZ WITHIN 2 WEEKS AND TO KEEP RESTING HEART RATE ON THE 60'S, PLACED CALL TO [facility] AND SPOKE WITH RONAN OLSON AND RELAYED ORDERS. HR TAKEN PRIOR TO LEAVING UNIT AND OBTAINED RESULT OF 72 BMP. PATIENT LEFT UNIT VIA GURNEY FROM [facility], LEFT UNIT AT 1420. MADE AWARE.
[2018-05-05] MEDS ORDERED: BRIM5DRO3 EACHEYE (14:10)
[2018-05-05] MEDS ORDERED: LATA2.5D7 EACHEYE (14:10)
[2018-05-05] MEDS ORDERED: POTA10CA43 PO (14:10)
[2018-05-05] MEDS ORDERED: PANT40TA2 PO (14:10)
== END 2018-02-06 14:29 | DRG 432 ==
LOC: ER 13:48 → MED 18:00
PROVIDERS: ADMIT Nurse Practitioner Acute Care; ATTEND Nurse Practitioner Acute Care
PROC: 0W9G3ZZ Drainage of Peritoneal Cavity, Percutaneous Approach (ICD-10-PCS; 2018-02-04)
PROC: 0DB78ZX Excision of Stomach, Pylorus, Via Natural or Artificial Opening Endoscopic, Diagnostic (ICD-10-PCS; 2018-02-05)
PROC: 0W3P8ZZ Control Bleeding in Gastrointestinal Tract, Via Natural or Artificial Opening Endoscopic (ICD-10-PCS; principal; 2018-02-05 09:00)
DX: K70.31 Alcoholic cirrhosis of liver with ascites (principal); I85.11 Secondary esophageal varices with bleeding; E44.0 Moderate protein-calorie malnutrition; D69.6 Thrombocytopenia, unspecified; E86.0 Dehydration; E87.1 Hypo-osmolality and hyponatremia; K76.6 Portal hypertension; N39.0 Urinary tract infection, site not specified; K25.9 Gastric ulcer, unspecified as acute or chronic, without hemorrhage or perforation; K72.90 Hepatic failure, unspecified without coma; E03.9 Hypothyroidism, unspecified; F10.229 Alcohol dependence with intoxication, unspecified; Y90.6 Blood alcohol level of 120-199 mg/100 ml; Z88.0 Allergy status to penicillin; R26.9 Unspecified abnormalities of gait and mobility; E78.5 Hyperlipidemia, unspecified; I10 Essential (primary) hypertension; F41.9 Anxiety disorder, unspecified; K31.89 Other diseases of stomach and duodenum; D75.89 Other specified diseases of blood and blood-forming organs; D72.819 Decreased white blood cell count, unspecified; D53.9 Nutritional anemia, unspecified
CPT/HCPCS: 36415; 71045-TC; 76942-TC; 80048-TC; 80053-TC; 80061-TC; 80076-TC; 81000-TC; 82140-TC; 82272-TC; 82962-TC; 83690-TC; 83735-TC; 84100-TC; 85025-TC; 85730-TC; 87081-TC; 87086-TC; 88305-TC; 88313-TC; 88342; 97110-TC; 97116-TC; 97530-TC; A4216; A4606; A6402; C9113; G0480; J1815; J1956; J3475; J3490; Z7610

== ENCOUNTER 2018-03-03 11:14 | Outpatient (CLI) | payer MEDICARE, BC ==
[~2018-03-03 11:14] MED LIST changes: +FOLI1TAB16 PO; +FURO40TA5 PO; +PROP20TA7 PO; +THIA100T13 PO
[2018-03-03 11:31] VITALS: BP 160/82
[2018-05-05] MEDS ORDERED: POTA10CA43 PO (14:10)
[2018-05-05] MEDS ORDERED: BRIM5DRO3 EACHEYE (14:10)
[2018-05-05] MEDS ORDERED: LATA2.5D7 EACHEYE (14:10)
[2018-05-05] MEDS ORDERED: PANT40TA2 PO (14:10)
== END 2018-03-03 23:59 | disposition home or self-care (01) ==
LOC: MSC 11:14
PROVIDERS: ATTEND Internal Medicine
DX: K70.31 Alcoholic cirrhosis of liver with ascites (principal); I85.10 Secondary esophageal varices without bleeding; K20.9 Esophagitis, unspecified; F10.20 Alcohol dependence, uncomplicated; D53.9 Nutritional anemia, unspecified; E87.1 Hypo-osmolality and hyponatremia; E44.0 Moderate protein-calorie malnutrition; E88.09 Other disorders of plasma-protein metabolism, not elsewhere classified; E03.9 Hypothyroidism, unspecified; I10 Essential (primary) hypertension; F41.9 Anxiety disorder, unspecified; Z91.14 Patient's other noncompliance with medication regimen

== ENCOUNTER 2018-03-03 12:52 | Outpatient (CLI) | payer MEDICARE, BC ==
[2018-03-03 13:55] LABS: BASOPHILS % (AUTO) 0.7 % (0.0-2.0); EOSINOPHILS % (AUTO) 1.2 % (0.0-6.0); HEMATOCRIT 28 % (33-45); HEMOGLOBIN 9.4 g/dL (11.5-14.8); LYMPHOCYTES # (AUTO) 1.1 /CMM (0.8-4.8); LYMPHOCYTES % (AUTO) 19.5 % (20.0-44.0); MEAN CORPUSCULAR HGB CONC 34 g/dl (31.0-36.0); MEAN CORPUSCULAR VOLUME 96 fL (82-100); MONOCYTES # (AUTO) 0.4 /CMM (0.1-1.30); MONOCYTES % (AUTO) 7.1 % (2.0-12.0); NEUTROPHILS % (AUTO) 71.5 % (43.0-81.0); PLATELET COUNT (AUTO) 226 /CMM (150-450); RDW COEFFICIENT OF VARIATION 21.8 (11.5-15.0); RED BLOOD CELL COUNT(AUTO) 2.91 MIL/uL (4.0-5.2); WHITE BLOOD COUNT (AUTO) 5.6 K/uL (4.3-11.0)
[2018-03-03 14:14] LABS: ALANINE AMINOTRANSFERASE 19 U/L (12-78); ALBUMIN 2.4 g/dL (3.4-5.0); ALKALINE PHOSPHATASE 70 U/L (46-116); ASPARTATE AMINOTRANSFERASE 28 U/L (15-37); BILIRUBIN,DIRECT 0.2 mg/dL (0.0-0.2); BILIRUBIN,TOTAL 0.9 mg/dL (0.2-1.0); CALCIUM, SERUM 9.1 mg/dL (8.5-10.1); CARBON DIOXIDE 28 mmol/L (21-32); CHLORIDE 99 mmol/L (98-107); CREATININE 0.8 mg/dL (0.6-1.3); GLUCOSE 109 mg/dL (74-106); POTASSIUM 3.3 mmol/L (3.5-5.1); SODIUM SERUM 135 mmol/L (136-145); TOTAL PROTEIN, SERUM 7.3 g/dL (6.4-8.2); UREA NITROGEN, BLOOD 12 mg/dL (7-18)
[2018-03-03 14:27] LABS: FREE T4 (FREE THYROXINE) 1.97 ng/dL (0.76-1.46); THYROID STIMULATING HORMONE 3.203 uIU/mL (0.358-3.74)
[2018-05-05] MEDS ORDERED: POTA10CA43 PO (14:10)
[2018-05-05] MEDS ORDERED: BRIM5DRO3 EACHEYE (14:10)
[2018-05-05] MEDS ORDERED: LATA2.5D7 EACHEYE (14:10)
[2018-05-05] MEDS ORDERED: PANT40TA2 PO (14:10)
== END 2018-03-03 23:59 | disposition home or self-care (01) ==
LOC: LAB 12:52
PROVIDERS: ATTEND Internal Medicine
DX: Z00.01 Encounter for general adult medical examination with abnormal findings (principal); N39.0 Urinary tract infection, site not specified; E03.9 Hypothyroidism, unspecified
CPT/HCPCS: 36415; 80048-TC; 80076-TC; 84439-TC; 84443-TC; 84481; 85025-TC

== ENCOUNTER 2018-03-17 12:52 | Outpatient (CLI) | payer MEDICARE, BC ==
[2018-03-17 13:05] VITALS: BP 121/62
[2018-05-05] MEDS ORDERED: LATA2.5D7 EACHEYE (14:10)
[2018-05-05] MEDS ORDERED: PANT40TA2 PO (14:10)
[2018-05-05] MEDS ORDERED: POTA10CA43 PO (14:10)
[2018-05-05] MEDS ORDERED: BRIM5DRO3 EACHEYE (14:10)
== END 2018-03-17 23:59 | disposition home or self-care (01) ==
LOC: MSC 12:52
PROVIDERS: ATTEND Internal Medicine
DX: K70.31 Alcoholic cirrhosis of liver with ascites (principal); D53.9 Nutritional anemia, unspecified; E87.1 Hypo-osmolality and hyponatremia; E44.0 Moderate protein-calorie malnutrition; E88.09 Other disorders of plasma-protein metabolism, not elsewhere classified; I85.00 Esophageal varices without bleeding; Z98.890 Other specified postprocedural states; F10.11 Alcohol abuse, in remission; E03.9 Hypothyroidism, unspecified

== ENCOUNTER 2018-05-05 14:17 | Outpatient (CLI) | payer MEDICARE, BC ==
[2018-05-05 14:11] VITALS: BP 104/54
[~2018-05-05 14:17] MED LIST changes: +BRIM5DRO3 EACHEYE; +LATA2.5D7 EACHEYE; +PANT40TA2 PO; +POTA10CA43 PO; +SPIR100T3 PO; -SPIR100T5 PO
== END 2018-05-05 23:59 | disposition home or self-care (01) ==
LOC: MSC 14:17
PROVIDERS: ATTEND Internal Medicine
DX: I95.9 Hypotension, unspecified (principal); R53.83 Other fatigue; K70.31 Alcoholic cirrhosis of liver with ascites; D53.9 Nutritional anemia, unspecified; E87.1 Hypo-osmolality and hyponatremia; E44.0 Moderate protein-calorie malnutrition; E88.09 Other disorders of plasma-protein metabolism, not elsewhere classified; F10.11 Alcohol abuse, in remission; E03.9 Hypothyroidism, unspecified; I85.10 Secondary esophageal varices without bleeding; D68.9 Coagulation defect, unspecified

== ENCOUNTER 2018-05-05 15:02 | Outpatient (CLI) | payer MEDICARE, BC ==
[2018-05-05 16:41] LABS: APPEARANCE,URINE CLEAR (CLEAR); BASOPHILS % (AUTO) 0.6 % (0.0-2.0); BILIRUBIN,URINE NEGATIVE (NEGATIVE); BLOOD, URINE NEGATIVE Ery/uL (NEGATIVE); COLOR,URINE YELLOW (YELLOW); EOSINOPHILS % (AUTO) 1.7 % (0.0-6.0); HEMATOCRIT 30 % (33-45); HEMOGLOBIN 9.9 g/dL (11.5-14.8); KETONES,URINE NEGATIVE (NEGATIVE); LEUKOCYTE ESTERASE ,URINE TRACE (NEGATIVE); LYMPHOCYTES # (AUTO) 1.6 /CMM (0.8-4.8); LYMPHOCYTES % (AUTO) 31.5 % (20.0-44.0); MEAN CORPUSCULAR HEMOGLOBIN 28 PG (26.0-33.0); MEAN CORPUSCULAR HGB CONC 33 g/dl (31.0-36.0); MEAN CORPUSCULAR VOLUME 85 fL (82-100); MONOCYTES # (AUTO) 0.5 /CMM (0.1-1.30); MONOCYTES % (AUTO) 9.2 % (2.0-12.0); NITRITE, URINE NEGATIVE (NEGATIVE); PH,URINE 5.5 (5.0-8.0); PLATELET COUNT (AUTO) 160 /CMM (150-450); PROTEIN,URINE NEGATIVE (NEGATIVE); RDW COEFFICIENT OF VARIATION 18.6 (11.5-15.0); UGLUCOSE NEGATIVE (NEGATIVE); UROBILINOGEN,URINE 0.2 EU/dL (0.2); WHITE BLOOD COUNT (AUTO) 5.2 K/uL (4.3-11.0)
[2018-05-05 17:06] LABS: ALANINE AMINOTRANSFERASE 16 U/L (12-78); ALBUMIN 3.2 g/dL (3.4-5.0); ALKALINE PHOSPHATASE 68 U/L (46-116); ASPARTATE AMINOTRANSFERASE 17 U/L (15-37); BILIRUBIN,DIRECT 0.1 mg/dL (0.0-0.2); BILIRUBIN,TOTAL 0.5 mg/dL (0.2-1.0); CARBON DIOXIDE 24 mmol/L (21-32); CHLORIDE 101 mmol/L (98-107); CREATININE 1.4 mg/dL (0.6-1.3); GLUCOSE 97 mg/dL (74-106); POTASSIUM 4.1 mmol/L (3.5-5.1); SODIUM SERUM 134 mmol/L (136-145); TOTAL PROTEIN, SERUM 7.8 g/dL (6.4-8.2); UREA NITROGEN, BLOOD 30 mg/dL (7-18)
[2018-05-05 17:33] LABS: RBC,URINE 0-2 /HPF (0-2); WBC,URINE 0-2 /HPF (0-3)
[2018-05-05 17:34] LABS: BACTERIA,URINE Few /HPF (None Seen); SQUAMOUS EPITHELIAL CELL,UR Rare /HPF (None Seen)
== END 2018-05-05 23:59 | disposition home or self-care (01) ==
LOC: LAB 15:02
PROVIDERS: ATTEND Internal Medicine
DX: E86.0 Dehydration (principal)
CPT/HCPCS: 36415; 80048-TC; 80076-TC; 81000-TC; 85025-TC; 87086-TC

== ENCOUNTER 2018-07-23 13:59 | Outpatient (CLI) | payer MEDICARE, BC ==
[~2018-07-23 13:59] MED LIST changes: -SPIR100T3 PO; +SPIR100T5 PO
[2018-07-23 14:22] VITALS: BP 129/49
== END 2018-07-23 23:59 | disposition home or self-care (01) ==
LOC: MSC 13:59
PROVIDERS: ATTEND Internal Medicine
DX: S39.012A Strain of muscle, fascia and tendon of lower back, initial encounter (principal); X50.1XXA Overexertion from prolonged static or awkward postures, initial encounter; Y92.89 Other specified places as the place of occurrence of the external cause; K74.60 Unspecified cirrhosis of liver; R18.8 Other ascites; Z87.440 Personal history of urinary (tract) infections; E03.9 Hypothyroidism, unspecified; F10.11 Alcohol abuse, in remission; Y90.9 Presence of alcohol in blood, level not specified; E44.0 Moderate protein-calorie malnutrition; E87.1 Hypo-osmolality and hyponatremia; D68.4 Acquired coagulation factor deficiency; D53.9 Nutritional anemia, unspecified; E88.09 Other disorders of plasma-protein metabolism, not elsewhere classified; I85.10 Secondary esophageal varices without bleeding

== ENCOUNTER 2018-08-20 12:55 | Outpatient (CLI) | payer MEDICARE, BC ==
[~2018-08-20] VITALS: Ht 165.1 cm; Wt 46.3 kg
[2018-08-20 13:12] VITALS: BP 143/74
== END 2018-08-20 23:59 | disposition home or self-care (01) ==
LOC: MSC 12:55
PROVIDERS: ATTEND Internal Medicine
DX: R11.2 Nausea with vomiting, unspecified (principal); R53.83 Other fatigue; K70.31 Alcoholic cirrhosis of liver with ascites; I85.10 Secondary esophageal varices without bleeding; F10.10 Alcohol abuse, uncomplicated; R00.0 Tachycardia, unspecified; D53.9 Nutritional anemia, unspecified; K92.2 Gastrointestinal hemorrhage, unspecified; E87.1 Hypo-osmolality and hyponatremia; E44.0 Moderate protein-calorie malnutrition; E88.09 Other disorders of plasma-protein metabolism, not elsewhere classified; E03.9 Hypothyroidism, unspecified

== ENCOUNTER 2018-08-20 14:04 | Inpatient (IN) | payer MEDICARE, BC ==
[~2018-08-20] VITALS: Ht 165.1 cm; Wt 47.6 kg
[2018-08-20] MEDS ORDERED: IV NS 0.9% 500 ML BAG IV ONE (15:00)
[2018-08-20 15:07] LABS: BASOPHILS # (AUTO) 0.1 /CMM (0.0-0.2); BASOPHILS % (AUTO) 1.3 % (0.0-2.0); EOSINOPHILS % (AUTO) 0.1 % (0.0-6.0); HEMATOCRIT 30 % (33-45); HEMOGLOBIN 10.2 g/dL (11.5-14.8); LYMPHOCYTES # (AUTO) 0.7 /CMM (0.8-4.8); LYMPHOCYTES % (AUTO) 9.3 % (20.0-44.0); MEAN CORPUSCULAR HGB CONC 34 g/dl (31.0-36.0); MEAN CORPUSCULAR VOLUME 94 fL (82-100); MONOCYTES # (AUTO) 0.4 /CMM (0.1-1.30); MONOCYTES % (AUTO) 5.3 % (2.0-12.0); NEUTROPHILS # (AUTO) 6.5 /CMM (1.8-8.9); PLATELET COUNT (AUTO) 141 /CMM (150-450); RDW COEFFICIENT OF VARIATION 15.4 (11.5-15.0); RED BLOOD CELL COUNT(AUTO) 3.16 MIL/uL (4.0-5.2); WHITE BLOOD COUNT (AUTO) 7.7 K/uL (4.3-11.0)
[2018-08-20 15:46] LABS: ALANINE AMINOTRANSFERASE 21 U/L (12-78); ALBUMIN 3.1 g/dL (3.4-5.0); ALKALINE PHOSPHATASE 84 U/L (46-116); ASPARTATE AMINOTRANSFERASE 19 U/L (15-37); BILIRUBIN,DIRECT 0.1 mg/dL (0.0-0.2); BILIRUBIN,TOTAL 0.7 mg/dL (0.2-1.0); CARBON DIOXIDE 23 mmol/L (21-32); CHLORIDE 106 mmol/L (98-107); CREATININE 1.1 mg/dL (0.6-1.3); GLUCOSE 148 mg/dL (74-106); POTASSIUM 4.6 mmol/L (3.5-5.1); SODIUM SERUM 139 mmol/L (136-145); TOTAL PROTEIN, SERUM 6.8 g/dL (6.4-8.2); UREA NITROGEN, BLOOD 44 mg/dL (7-18)
[2018-08-20 15:52] LABS: INR 1.12 (0.85-1.15)
[2018-08-20] MEDS ORDERED: PANTOPRAZOLE 80 MG in IV NS 0.9% 100 ML IV ONE (16:00)
[2018-08-20] MEDS ORDERED: OCTREOTIDE 50 MCG/ML AMPUL IV ONE (16:00)
[2018-08-20] MEDS ORDERED: OCTREOTIDE 1,250 MCG in IV NS 0.9% 250 ML IV ONE (16:00)
[2018-08-20] MEDS ORDERED: PANTOPRAZOLE 80 MG in IV NS 0.9% 500 ML IV ONE (16:00)
--- NOTE | 2018-08-20 17:58 | NUR ---
TX TO ROOM 115-1,REPORT GIVEN AT BEDSIDE FOR FRANCOIS
--- NOTE | 2018-08-20 18:03 | NUR ---
LONG HAUL TRUCK DRIVER ADMIT RECEIVED REPORT AT BEDSIDE BY ED RN. PATIENT DIAGNOSIS OF GI BLEED. A/0 X3 NO S/S OF RESPIRATORY DISTRESS OR ACUTE PAIN. IV SITE CLEAN AND INTACT (L) AC RUNNING PROTONIX @ 52ML/HR AND (R) AC OCTREOTIDE @ 10ML/HR TOLERATING WITH NO C/O N/V/D. AT BEDSIDE PERSONAL BELONGINGS RECORDED BY CHIEF CONCIERGE. DR BELTRÁN NOTIFIED OF PATIENTS ARRIVAL. SAFETY PRECAUTIONS IN PLACE BED IN LOW POSITION CALL LIGHT WITHIN REACH
--- NOTE | 2018-08-20 18:07 | NUR ---
CONTACT ACID PLANT OPERATORSUPERINTENDENT STORAGE AREA VITALS TEMP 98.2 (ORAL) B/P 145/80 HR 83 RESP 20 O2 100% ON ROOM AIR
[2018-08-20] MEDS ORDERED: MAG HYDROX/AL HYDROX/SIMETH 30 ML UDC PO PRN (18:30)
[2018-08-20] MEDS ORDERED: ZOLPIDEM TARTRATE 5 MG TABLET PO PRN (18:30)
[2018-08-20] MEDS ORDERED: MAGNESIUM HYDROXIDE 30 ML UDC PO PRN (18:30)
[2018-08-20] MEDS ORDERED: ONDANSETRON HCL/PF 4 MG/2 ML VIAL IVP PRN (18:30)
[2018-08-20] MEDS ORDERED: ACETAMINOPHEN 325 MG TABLET PO PRN (18:30)
[2018-08-20] MEDS ORDERED: HYDROCODONE/APAP 5/325MG 1 EACH TABLET PO PRN (18:30)
[2018-08-20] MEDS ORDERED: Z GUARD REMEDY 2 OZ OINT TP PRN (18:30)
--- NOTE | 2018-08-20 18:59 | NUR ---
VICE PRESIDENT PLANNING CLOSING NOTES PATIENT PLEASANT FEMALE PRESENTED TO ED AND TRANSFERRED TO TELE FOR GI BLEED. JAUNDIC EIN COLOR NO C/O RESPIRATORY DISTRESS OR ACUTE PAIN. FRAIL LOOKING WITH LIVER DISEASE AND JAUNDICE COLOR. IV (R/L) AC WITH IV FLUIDS RUNNING. ABLE TO MAKE NEEDS KNOWN AND ALL MET BY STAFF. SAFETY PRECAUTIONS IN PLACE CALL LIGHT WITHIN REACH
[2018-08-20] MEDS ORDERED: MORPHINE SULFATE INJ 4 MG/ML DISP.SYRIN IV PRN (19:00)
[2018-08-20] MEDS: BRIMONIDINE TARTRATE OPHT SOLN 5 ML BOTTLE OP SCH (21:23)
[2018-08-20] MEDS: LATANOPROST EYE DROP 0.005% 2.5 ML BOTTLE EACHEYE SCH (21:24)
[2018-08-20 21:46] VITALS: BP 117/50
[2018-08-20 22:23] VITALS: BP 117/50
[2018-08-21] VITALS (12 sets, daily range): BP systolic 100–117; BP diastolic 42–85
[2018-08-21] MEDS: IV NS 0.9% 1,000 ML IV PRN ×2 (03:33→19:37)
[2018-08-21] MEDS: BRIMONIDINE TARTRATE OPHT SOLN 5 ML BOTTLE OP SCH ×3 (04:05→22:18)
[2018-08-21 07:15] LABS: BASOPHILS % (AUTO) 0.7 % (0.0-2.0); EOSINOPHILS % (AUTO) 2.6 % (0.0-6.0); HEMATOCRIT 22 % (33-45); HEMOGLOBIN 7.7 g/dL (11.5-14.8); LYMPHOCYTES # (AUTO) 1.1 /CMM (0.8-4.8); LYMPHOCYTES % (AUTO) 29.6 % (20.0-44.0); MEAN CORPUSCULAR HGB CONC 35 g/dl (31.0-36.0); MEAN CORPUSCULAR VOLUME 97 fL (82-100); MONOCYTES # (AUTO) 0.4 /CMM (0.1-1.30); MONOCYTES % (AUTO) 9.5 % (2.0-12.0); NEUTROPHILS # (AUTO) 2.2 /CMM (1.8-8.9); NEUTROPHILS % (AUTO) 57.6 % (43.0-81.0); PLATELET COUNT (AUTO) 86 /CMM (150-450); RED BLOOD CELL COUNT(AUTO) 2.28 MIL/uL (4.0-5.2); WHITE BLOOD COUNT (AUTO) 3.8 K/uL (4.3-11.0)
--- NOTE | 2018-08-21 07:25 | NUR ---
DOOR CLAMP OPERATOR OPENING NOTES RECEIVED PT ON BED.ALERT/ORIENTED X3.ON RA WITH O2 SAT 97%.NO SOB AND ACUTE DISTRESS NOTED.IV LINE IS ON RIGHT AC G20,AND LEFT AC G20,SITE IS CLEAN,DRY AND INTACT.SAFETY IS MAINTAINED ALL THE TIME.BED IS IN LOW POSITION AND LOCKED.CALL LIGHT IS WITHIN REACH.WILL CONTINUE TO MONITOR THE PT CLOSELY. Addendum: 08/21/18 at 0739 by FARAZ MURRAY RN ON TELE HR IS 68-70'S WITH SINUS RHYTHM.
[2018-08-21 07:37] LABS: CALCIUM, SERUM 7.7 mg/dL (8.5-10.1); CARBON DIOXIDE 20 mmol/L (21-32); CHLORIDE 111 mmol/L (98-107); GLUCOSE 114 mg/dL (74-106); MAGNESIUM 1.5 mg/dL (1.8-2.4); PHOSPHORUS 3.5 mg/dL (2.5-4.9); POTASSIUM 3.9 mmol/L (3.5-5.1); SODIUM SERUM 143 mmol/L (136-145); UREA NITROGEN, BLOOD 36 mg/dL (7-18)
[2018-08-21 08:56] LABS: EOSINOPHILS % (MANUAL) 40 % (0-4); LYMPHOCYTES % (MANUAL) 29 % (16-48); MONOCYTES % (MANUAL) 10 % (0-11.0); NEUTROPHILS % (MANUAL) 57 (42-76)
[2018-08-21] MEDS: PROPRANOLOL HCL 10 MG TABLET PO SCH ×2 (09:10→17:43)
[2018-08-21] MEDS: LEVOTHYROXINE SODIUM 125 MCG TABLET PO SCH (09:11)
[2018-08-21] MEDS: SPIRONOLACTONE 25 MG TABLET PO SCH (09:12)
[2018-08-21] MEDS: THIAMINE HCL 100 MG TABLET PO SCH (09:13)
[2018-08-21] MEDS: FOLIC ACID 1 MG TABLET PO SCH (09:13)
[2018-08-21] MEDS: Magnesium 1GM/D5W 100ML PREMIX 100 ML IV SCH ×2 (10:56→12:15)
[2018-08-21] MEDS: ENSURE CLEAR 237 ML LIQUID (MIX BERRY) PO SCH ×2 (13:00→17:43)
--- NOTE | 2018-08-21 13:00 | NUR ---
MOLD MAINTENANCE TECHNICIAN NOTES ORDERED TO CONINUE EYE DROPS DORZOLAMIDE EYEDROPS 2% 1 DROP IN BOTH EYES BID PER PT REQUEST.NEW ORDERS NOTED AND CARRIED OUT.
--- NOTE | 2018-08-21 13:15 | NUR ---
TRANSFORMER MECHANIC NOTES ANNA ANDRADE SEEN THE PT AND PLANNING FOR EGD TODAY.ORDERED TO KEEP PT ON NPO TILL THE PROCEDURE DONE.PT MADE AWARE.NEW ORDERS NOTED AND CARRIED OUT.
[2018-08-21] MEDS: LACTULOSE 10 G/15 ML UDC (PYXIS) PO SCH ×2 (13:30→22:20)
--- NOTE | 2018-08-21 14:00 | NUR ---
GOAL UMPIRE NOTES PT IS PICKED UP TO DO EGD.CONSENT DEN BY THE PT,WELL EXPLAINED THE PROCEDURE AND PT MADE AWARE ABOUT IT.VITAL SIGNS CHECKED AN RECORDED.NO COMPLICATIONS NOTED.
[2018-08-21] MEDS ORDERED: SUCCINYLCHOLINE CHLORIDE 20 MG/ML VIAL ONE (14:19)
--- NOTE | 2018-08-21 15:30 | NUR ---
TELEPHONE INSTALLER NOTES PT CAME BACK FROM THE PROCEDURE WITH THE NURSE ASSIST BY FELIPA.PT IS ALERT/ORIENTED X2.VITAL SIGNS CHECKED AND RECORDED. PER THE NURSE FROM THE SURGICAL, DEPT SAID CHECK VITAL SIGNS Q15MT X1HR AND Q30 MT X2HRS.O COMPLICATIONS NOTED AND PT TOLERATED WELL FROM THE PROCEDURE.NEW ORDERS NOTED AND CARRIED OUT.
[2018-08-21] MEDS: DORZOLAMIDE OPTH 2% 10 ML BOTTLE EACHEYE SCH (16:26)
--- NOTE | 2018-08-21 18:40 | NUR ---
TELE N CLOSING NOTES PT IS ON BED.VITAL SIGNS ARE MONITORING CONTINUOUSLY.IT IS WNL.NO SOB AND ACUTE DISTRESS NOTED.PT TOLERATING WELL.START TO EAT 2G SODIUM DIET IN DINNER.ENDORSING TO THE STRAPPER RN FOR CONTINUITY OF CARE AND MONITORING THE VITAL SIGNS.
--- NOTE | 2018-08-21 19:37 | NUR ---
Patient lives locally with spouse. She has history of liver cirrhosis and alcohol dependence, admitted with GI Bleed. She requires min-mod assist with adl's. Has adequate DME: cane, walker, shower chair and grab bars. Current plan is to return to home, spouse will provide ride Addendum: 08/21/18 at 1937 by SANTOS DE LA ROSA RN Amended: Links added.
[2018-08-21] MEDS: LATANOPROST EYE DROP 0.005% 2.5 ML BOTTLE EACHEYE SCH (22:18)
[2018-08-22] VITALS (9 sets, daily range): BP systolic 83–141; BP diastolic 38–62
[2018-08-22] MEDS: LACTULOSE 10 G/15 ML UDC (PYXIS) PO SCH ×5 (05:00→23:50)
[2018-08-22] MEDS: BRIMONIDINE TARTRATE OPHT SOLN 5 ML BOTTLE OP SCH ×3 (05:13→21:19)
--- NOTE | 2018-08-22 05:51 | NUR ---
RN NOTES RECEIVED PATIENT IN BED WITH FAMILY AT BEDSIDE. NO RESPIRATORY DISTRESS OR SHORTNESS OF BREATH. ALERT AND ORIENTED. VERBALLY ABLE TO COMMUNICATE NEEDS. NO COMPLAINT OF PAIN OR DISCOMFORT. VITAL SIGNS WNL. AT 0400, PATIENT HAD BM, BLACK, WATERY, VERY LARGE AMOUNT, FOUL SMELLING STOOL. RELAYED TO MD, SPOKE WITH DR NEWBERRY AND OBTAINED ORDER FOR OCCULT BLOOD IN STOOL. HELD LACTULOSE FOR LOOSE BM, MD AWARE. MONITORED CLOSELY. VITAL SIGNS WNL. WILL ENDORSE TO AM SHIFT FOR CONTINUITY OF CARE.
[2018-08-22 07:04] LABS: BASOPHILS # (AUTO) 0.1 /CMM (0.0-0.2); BASOPHILS % (AUTO) 1.3 % (0.0-2.0); EOSINOPHILS % (AUTO) 3.4 % (0.0-6.0); HEMATOCRIT 26 % (33-45); HEMOGLOBIN 8.8 g/dL (11.5-14.8); LYMPHOCYTES # (AUTO) 1.2 /CMM (0.8-4.8); LYMPHOCYTES % (AUTO) 29.6 % (20.0-44.0); MEAN CORPUSCULAR HGB CONC 34 g/dl (31.0-36.0); MEAN CORPUSCULAR VOLUME 100 fL (82-100); MONOCYTES # (AUTO) 0.3 /CMM (0.1-1.30); MONOCYTES % (AUTO) 8.4 % (2.0-12.0); NEUTROPHILS # (AUTO) 2.3 /CMM (1.8-8.9); NEUTROPHILS % (AUTO) 57.3 % (43.0-81.0); PLATELET COUNT (AUTO) 104 /CMM (150-450); WHITE BLOOD COUNT (AUTO) 4.1 K/uL (4.3-11.0)
[2018-08-22 07:16] LABS: INR 1.06 (0.87-1.13)
[2018-08-22 07:18] LABS: ALANINE AMINOTRANSFERASE 18 U/L (12-78); ALBUMIN 2.7 g/dL (3.4-5.0); ALKALINE PHOSPHATASE 71 U/L (46-116); ASPARTATE AMINOTRANSFERASE 22 U/L (15-37); BILIRUBIN,TOTAL 0.5 mg/dL (0.2-1.0); CALCIUM, SERUM 8.4 mg/dL (8.5-10.1); CARBON DIOXIDE 17 mmol/L (21-32); CHLORIDE 114 mmol/L (98-107); CREATININE 1.1 mg/dL (0.6-1.3); GLUCOSE 128 mg/dL (74-106); MAGNESIUM 2.1 mg/dL (1.8-2.4); PHOSPHORUS 3.3 mg/dL (2.5-4.9); POTASSIUM 3.3 mmol/L (3.5-5.1); SODIUM SERUM 142 mmol/L (136-145); TOTAL PROTEIN, SERUM 6.2 g/dL (6.4-8.2); UREA NITROGEN, BLOOD 27 mg/dL (7-18)
--- NOTE | 2018-08-22 08:30 | NUR ---
RN NOTES RECEIVED PT ON BED.ALERT/ORIENTED X3.ABLE TO MAKE NEEDS KNOWN,ON ROOM AIR WITH O2 SAT 97%.NO SOB NOTED.NO COMPLAINTS OF ANY KIND. IV LINE IS ON RIGHT AC G20 ON GOING NS AT 75CC/HR, LEFT AC G20 SALINE LOCK, BOTH SITE CLEAN,DRY AND INTACT.SAFETY MEASURES IN PLACE. BED IS IN LOW POSITION AND LOCKED. CALL LIGHT IS WITHIN REACH.WILL CONTINUE TO MONITOR THE PT CLOSELY.
[2018-08-22] MEDS: LEVOTHYROXINE SODIUM 125 MCG TABLET PO SCH (10:01)
[2018-08-22] MEDS: THIAMINE HCL 100 MG TABLET PO SCH (10:01)
[2018-08-22] MEDS: SPIRONOLACTONE 25 MG TABLET PO SCH (10:01)
[2018-08-22] MEDS: FOLIC ACID 1 MG TABLET PO SCH (10:01)
[2018-08-22] MEDS: PROPRANOLOL HCL 10 MG TABLET PO SCH ×2 (10:02→17:22)
[2018-08-22] MEDS: ENSURE CLEAR 237 ML LIQUID (MIX BERRY) PO SCH ×3 (10:03→17:21)
[2018-08-22] MEDS: DORZOLAMIDE OPTH 2% 10 ML BOTTLE EACHEYE SCH ×2 (10:04→17:00)
[2018-08-22] MEDS ORDERED: POTASSIUM CHLORIDE 20 MEQ TAB.PRT.SR PO SCH ×2 (11:30→13:30)
[2018-08-22 11:58] LABS: OCCULT BLOOD STOOL POSITIVE (NEGATIVE)
[2018-08-22] MEDS: IV NS 0.9% 1,000 ML IV PRN (17:05)
--- NOTE | 2018-08-22 19:22 | NUR ---
MS RN NOTES RECEIVE PT IN BED AWAKE A/OX 3, IN STABLE CONDITION, NOT IN DISTRESS, SAFETY MEASURES IN PLACE WILL CONTINUE TO MONITOR.
--- NOTE | 2018-08-22 19:36 | NUR ---
RN NOTES ENDORSED PATIENT FOR CONTINUITY OF CARE. NO ACUTE CHANGES WITHIN THE SHIFT. ALL NURSING NEEDS ATTENDED AND MET. SAFETY MEASURES IN PLACVE AT ALL TIME. ASPIRATION PRECAUTION IN PLACE AT ALL TIMES. CALL LIGHT WITHIN REACH.
[2018-08-22] MEDS: LATANOPROST EYE DROP 0.005% 2.5 ML BOTTLE EACHEYE SCH (21:19)
[2018-08-23] VITALS: BP 131/52
[2018-08-23 04:00] VITALS: BP 137/56
[2018-08-23] MEDS: IV NS 0.9% 1,000 ML IV PRN (05:00)
[2018-08-23] MEDS: BRIMONIDINE TARTRATE OPHT SOLN 5 ML BOTTLE OP SCH ×2 (05:03→12:33)
--- NOTE | 2018-08-23 06:29 | NUR ---
MS RN CLOSING NOTES ASLEEP AND EASILY AWAKEN, TOLERATING ROOM AIR 99% NOT IN DISTRESS. RESPIRATION EVEN AND UNLABORED. KEPT CLEAN AND DRY AND COMFORTABLE, ALL NURSING CARE RENDERED. NEEDS ATTENDED AND ANTICIPATED. ON LOW BED AT ALL TIMES TO ENSURE SAFETY. SAFE HAZARD FREE ENVIRONMENT PROVIDED. CALL LIGHT WITHIN EASY TO REACH. WILL ENDORSE NEXT SHIFT CONTINUITY OF CARE.
--- NOTE | 2018-08-23 06:30 | NUR ---
NO COMPLAINS OF PAIN THROUGHOUT THE SHIFT
[2018-08-23] MEDS ORDERED: PANTOPRAZOLE 40 MG TABLET.DR PO SCH (07:30)
--- NOTE | 2018-08-23 07:30 | NUR ---
MS RN OPENING NOTES RECEIVED PATIENT IN STABLE CONDITION. IN NO APPARENT DISTRESS. BEDSIDE RAILS ARE UPX2. BED IS LOCKED AND LOWERED. CALL LIGHT IS WITHIN REACH. IV LINE IS INTACT AND PATENT. WILL CONTINUE TO MONITOR PATIENT.
[2018-08-23 07:33] LABS: BASOPHILS % (AUTO) 0.7 % (0.0-2.0); EOSINOPHILS % (AUTO) 3.2 % (0.0-6.0); HEMATOCRIT 27 % (33-45); HEMOGLOBIN 8.6 g/dL (11.5-14.8); LYMPHOCYTES # (AUTO) 2.1 /CMM (0.8-4.8); MEAN CORPUSCULAR HGB CONC 32 g/dl (31.0-36.0); MEAN CORPUSCULAR VOLUME 100 fL (82-100); MONOCYTES # (AUTO) 0.4 /CMM (0.1-1.30); MONOCYTES % (AUTO) 7.5 % (2.0-12.0); NEUTROPHILS # (AUTO) 2.6 /CMM (1.8-8.9); NEUTROPHILS % (AUTO) 49.6 % (43.0-81.0); PLATELET COUNT (AUTO) 140 /CMM (150-450); RED BLOOD CELL COUNT(AUTO) 2.67 MIL/uL (4.0-5.2); WHITE BLOOD COUNT (AUTO) 5.3 K/uL (4.3-11.0)
[2018-08-23 07:40] LABS: CALCIUM, SERUM 8.2 mg/dL (8.5-10.1); CARBON DIOXIDE 17 mmol/L (21-32); CHLORIDE 111 mmol/L (98-107); CREATININE 0.9 mg/dL (0.6-1.3); GLUCOSE 107 mg/dL (74-106); MAGNESIUM 1.6 mg/dL (1.8-2.4); POTASSIUM 3.1 mmol/L (3.5-5.1); SODIUM SERUM 140 mmol/L (136-145); UREA NITROGEN, BLOOD 16 mg/dL (7-18)
--- NOTE | 2018-08-23 08:05 | NUR ---
ATTEMPTED TO ADMINISTER MORNING MEDICATION PROTONIX AND SYNTHROID. PER PATIENTS , HE WANTS HER TO SLEEP AND COME BACK IN SOME TIME.
[2018-08-23] MEDS: LEVOTHYROXINE SODIUM 125 MCG TABLET PO SCH (08:29)
[2018-08-23] MEDS: SPIRONOLACTONE 25 MG TABLET PO SCH (08:30)
[2018-08-23] MEDS: DORZOLAMIDE OPTH 2% 10 ML BOTTLE EACHEYE SCH (08:30)
[2018-08-23] MEDS: FOLIC ACID 1 MG TABLET PO SCH (08:31)
[2018-08-23] MEDS: LACTULOSE 10 G/15 ML UDC (PYXIS) PO SCH (08:31)
[2018-08-23] MEDS: THIAMINE HCL 100 MG TABLET PO SCH (08:31)
[2018-08-23] MEDS: ENSURE CLEAR 237 ML LIQUID (MIX BERRY) PO SCH ×2 (08:38→12:40)
[2018-08-23 08:39] VITALS: BP 148/80
[2018-08-23] MEDS: PROPRANOLOL HCL 10 MG TABLET PO SCH (08:39)
--- NOTE | 2018-08-23 08:40 | NUR ---
NON ADMINISTERED PROPRANOLOL. PATIENT'S HEART RATE IS 60.
[2018-08-23] MEDS ORDERED: PYRIDOXINE HCL 50 MG TABLET PO SCH (09:00)
[2018-08-23] MEDS ORDERED: POTASSIUM CHLORIDE 20 MEQ TAB.PRT.SR PO ONE (09:30)
[2018-08-23] MEDS ORDERED: Magnesium 1GM/D5W 100ML PREMIX PIGGYBACK IV ONE (09:30)
[2018-08-23] MEDS: Magnesium 1GM/D5W 100ML PREMIX 100 ML IV SCH ×3 (10:06→12:36)
--- NOTE | 2018-08-23 15:35 | NUR ---
DISCHARGED PATIENT IN STABLE CONDITION. IN NO APPARENT DISTRESS. EXITCARE WAS PROVIDED TO THE PATIENT. IV LINE WAS REMOVED. ID BAND WAS REMOVED. ALL NEEDS WERE MET. BELONGINGS WERE CHECKED AND GIVEN TO THE PATIENT. PATIENT WAS ESCORTED OUT OF THE FACILITY VIA WHEELCHAIR BY HAILEY SPANN AND . WILL DRIVE PATIENT BACK HOME SAFELY.
== END 2018-08-23 15:37 | disposition home or self-care (01) | DRG 378 ==
LOC: ER 14:06 → TELE1 16:57 → MEDSG1 08-22 13:59
PROVIDERS: ADMIT Internal Medicine; ATTEND Internal Medicine
PROC: 0DB68ZX Excision of Stomach, Via Natural or Artificial Opening Endoscopic, Diagnostic (ICD-10-PCS; principal; 2018-08-21 13:30)
DX: K29.71 Gastritis, unspecified, with bleeding (principal); K76.6 Portal hypertension; E44.1 Mild protein-calorie malnutrition; K31.89 Other diseases of stomach and duodenum; I10 Essential (primary) hypertension; E78.5 Hyperlipidemia, unspecified; Z90.710 Acquired absence of both cervix and uterus; K44.9 Diaphragmatic hernia without obstruction or gangrene; K29.80 Duodenitis without bleeding; E83.42 Hypomagnesemia; K20.9 Esophagitis, unspecified; E78.00 Pure hypercholesterolemia, unspecified; E03.9 Hypothyroidism, unspecified; D64.9 Anemia, unspecified; K70.30 Alcoholic cirrhosis of liver without ascites
CPT/HCPCS: 36415; 71045-TC; 80048-TC; 80053-TC; 80076-TC; 82140-TC; 82272-TC; 83735-TC; 84100-TC; 85025-TC; 85610-TC; 85730-TC; 86850-TC; 87081-TC; 88305-TC; 88313-TC; 88342; A4606; C9113; G0378; J0330; J2354; J3475; J3490; J7030; J7040; J7050; Z7610

== ENCOUNTER 2018-09-28 13:32 | Outpatient (CLI) | payer MEDICARE, BC ==
[~2018-09-28 13:32] MED LIST changes: -FURO40TA5 PO; -PANT40TA2 PO
[2018-09-28 13:40] VITALS: BP 142/66
== END 2018-09-28 23:59 | disposition home or self-care (01) ==
LOC: MSC 13:32
PROVIDERS: ATTEND Internal Medicine
DX: K29.80 Duodenitis without bleeding (principal); K29.60 Other gastritis without bleeding; K76.6 Portal hypertension; M54.9 Dorsalgia, unspecified; K70.31 Alcoholic cirrhosis of liver with ascites; D53.9 Nutritional anemia, unspecified; E87.1 Hypo-osmolality and hyponatremia; E44.0 Moderate protein-calorie malnutrition; E88.09 Other disorders of plasma-protein metabolism, not elsewhere classified; I85.10 Secondary esophageal varices without bleeding; E03.9 Hypothyroidism, unspecified; F10.10 Alcohol abuse, uncomplicated

== ENCOUNTER 2019-04-13 13:06 | Outpatient (CLI) | payer MEDICARE, BC ==
[~2019-04-13] VITALS: Ht 165.1 cm; Wt 51.7 kg
[2019-04-13 13:24] VITALS: BP 137/70
--- NOTE | 2019-04-13 14:05 | NUR ---
S/E by Dr. Quintanilla with orders. U/A collected and sent to the lab. Clinical Courier in Room with patient for lab draw as ordered. ACI provided with the patient, and as per patient requested.
[2019-04-13 14:24] LABS: APPEARANCE,URINE CLEAR (CLEAR); BILIRUBIN,URINE NEGATIVE (NEGATIVE); BLOOD, URINE 1+ Ery/uL (NEGATIVE); COLOR,URINE YELLOW (YELLOW); KETONES,URINE NEGATIVE (NEGATIVE); LEUKOCYTE ESTERASE ,URINE NEGATIVE (NEGATIVE); NITRITE, URINE NEGATIVE (NEGATIVE); PH,URINE 5.5 (5.0-8.0); PROTEIN,URINE NEGATIVE (NEGATIVE); UGLUCOSE NEGATIVE (NEGATIVE)
[2019-04-13 14:27] LABS: BASOPHILS % (AUTO) 0.4 % (0.0-2.0); EOSINOPHILS % (AUTO) 1.4 % (0.0-6.0); HEMATOCRIT 40 % (33-45); HEMOGLOBIN 13.8 g/dL (11.5-14.8); LYMPHOCYTES # (AUTO) 1.8 /CMM (0.8-4.8); LYMPHOCYTES % (AUTO) 22.8 % (20.0-44.0); MEAN CORPUSCULAR HGB CONC 35 g/dl (31.0-36.0); MEAN CORPUSCULAR VOLUME 102 fL (82-100); MONOCYTES # (AUTO) 0.4 /CMM (0.1-1.30); MONOCYTES % (AUTO) 5.2 % (2.0-12.0); NEUTROPHILS # (AUTO) 5.6 /CMM (1.8-8.9); NEUTROPHILS % (AUTO) 70.2 % (43.0-81.0); PLATELET COUNT (AUTO) 169 /CMM (150-450); RED BLOOD CELL COUNT(AUTO) 3.89 MIL/uL (4.0-5.2)
[2019-04-13 14:32] LABS: CALCIUM, SERUM 8.6 mg/dL (8.5-10.1); CARBON DIOXIDE 20 mmol/L (21-32); CHLORIDE 103 mmol/L (98-107); CREATININE 0.7 mg/dL (0.6-1.3); GLUCOSE 102 mg/dL (74-106); POTASSIUM 4.4 mmol/L (3.5-5.1); SODIUM SERUM 136 mmol/L (136-145); UREA NITROGEN, BLOOD 9 mg/dL (7-18)
[2019-04-13 14:35] LABS: SERUM AMMONIA 41 umol/L (11-32)
[2019-04-13 14:46] LABS: BACTERIA,URINE None seen /HPF (None Seen); SQUAMOUS EPITHELIAL CELL,UR Rare /HPF (None Seen); WBC,URINE 0-2 /HPF (0-3)
[2019-04-13 14:47] LABS: ALANINE AMINOTRANSFERASE 27 U/L (12-78); ALBUMIN 3.4 g/dL (3.4-5.0); ALKALINE PHOSPHATASE 65 U/L (46-116); ASPARTATE AMINOTRANSFERASE 25 U/L (15-37); BILIRUBIN,TOTAL 0.6 mg/dL (0.2-1.0); TOTAL PROTEIN, SERUM 7.2 g/dL (6.4-8.2)
[2019-04-13 14:49] LABS: THYROID STIMULATING HORMONE 0.602 uIU/mL (0.358-3.74)
== END 2019-04-13 23:59 | disposition home or self-care (01) ==
LOC: MSC 13:06
PROVIDERS: ATTEND Nurse Practitioner Acute Care
DX: I10 Essential (primary) hypertension (principal); E03.9 Hypothyroidism, unspecified; K29.80 Duodenitis without bleeding; K20.9 Esophagitis, unspecified; K27.9 Peptic ulcer, site unspecified, unspecified as acute or chronic, without hemorrhage or perforation; F10.20 Alcohol dependence, uncomplicated; I85.00 Esophageal varices without bleeding; R18.8 Other ascites; H40.9 Unspecified glaucoma
CPT/HCPCS: 36415; 80053; 81001; 82140; 84443; 85025; G0463; 81000-TC